=== PATIENT | female | born 1995 | race African-American/Black ===

== ENCOUNTER 2019-05-12 13:47 | Emergency (ER) | payer OTHER ==
[~2019-05-12] VITALS: Ht 170.2 cm; Wt 59.0 kg
[2019-05-12 13:50] VITALS: BP 139/69
[2019-05-12] MEDS ORDERED: ACETAMINOPHEN ES 500 MG TABLET PO ONE (14:00)
[2019-05-12] MEDS ORDERED: ACETAMINOPHEN ES 500 MG TABLET ONE (14:03)
== END 2019-05-12 15:48 ==
LOC: ER 13:50
DX: S40.012A Contusion of left shoulder, initial encounter (principal); S20.222A Contusion of left back wall of thorax, initial encounter; Y04.0XXA Assault by unarmed brawl or fight, initial encounter; Y93.89 Activity, other specified; Y92.89 Other specified places as the place of occurrence of the external cause; Y99.8 Other external cause status
CPT/HCPCS: 71111-TC; 72074-TC; 73030-TC; 73060-TC; 84703-TC